=== PATIENT | female | born 1995 | race Caucasian/White ===

== ENCOUNTER 2023-02-15 11:06 | Outpatient (CLI) | payer OTHER, SELFPAY ==
--- NOTE | 2023-02-15 11:15 | CRLHL7_ITS ---
For Patients: As a result of the Century Cures Act, medical imaging exams and procedure reports are released immediately into your electronic medical record. You may view this report before your referring provider. If you have questions, please contact your health care provider. LEFT BREAST ULTRASOUND CLINICAL HISTORY: LEFT breast pain. COMPARISON: None. TECHNIQUE: Real-time ultrasound imaging of LEFT breast with imaging documentation. FINDINGS: Targeted ultrasound LEFT breast laterally corresponding to the area of pain 1-4 o`clock 10 cm from the nipple performed. Normal fibroglandular tissue. No fibrocystic change or mass. IMPRESSION: Negative ultrasound lateral LEFT breast. No evidence of malignancy. RECOMMENDATIONS: Clinical follow-up. Age appropriate screening mammography. Results and recommendations were discussed with the patient at the time of the exam. BI-RADS Category 2: Benign A lay language report of this examination will be provided to the patient. Dictated by Rc Vazquez MD @ 02/15/2023 11:53:25 AM jj/Dictated by: Rc Vazquez MD @ 02/15/2023 11:53:00 AM (Electronically Signed)
== END 2023-02-15 11:07 | disposition home or self-care (01) ==
LOC: US 11:08
PROVIDERS: PCP Internal Medicine; Visit Provider Physician Assistant
DX: N63.20 Unspecified lump in the left breast, unspecified quadrant (principal); N64.4 Mastodynia
CPT/HCPCS: 76642